=== PATIENT | male | born 1960 | race Caucasian/White ===

== ENCOUNTER 2017-02-24 14:37 | Emergency (ER) | payer MEDICAID ==
--- NOTE | 2017-02-27 16:10 | ER ---
ADMIT: 02/24/2017 RM/LOC: ER [facility] MR#: [id number] [id number] [place], [place] [address] [place] [id number] [address] Emergency Room Report SEX: M AGE: 56 : 1960 DATE: 02/24/2017 PRIMARY CARE: None. BRIEF ADDENDUM: Please see my T-sheet for complete review of systems, past medical history, and physical exam. CHIEF COMPLAINT: Today is fall. HISTORY OF PRESENT ILLNESS: This is a 56-year-old white male, who fell approximately 2 o'clock this morning from the top bunk bed at [employer]. The patient states he fell out of the top bed. Does not believe he lost consciousness. Did sustain an injury to his chin, both knees, and his back. Currently in a moderate amount of pain. He was able to walk to the department today from the [employer] on foot. Also, states he is having some pain with urination. Denies any bright blood in the urine, fevers, or chills. Denies any dizziness, lightheadedness, fever, weakness, numbness, shortness of breath, cough, nausea, or vomiting. COURSE IN THE EMERGENCY ROOM: The patient was seen and examined. He is afebrile and nontoxic. He is in no acute distress. Head, he does have a 3 mm laceration abrasion on his chin secondary to the timing and the small size of the wound, I did defer closing this today as it is not actively bleeding and was not gaping. Neck is tender in the paravertebral musculature. No midline tenderness. No limited range of motion. Eyes are equal and reactive. Extraocular muscles are intact. ENT, no obvious dental injuries. Airway is intact. No respiratory distress. Breath sounds are clear bilaterally. Heart sounds normal. Abdomen, soft and nontender. He is alert and oriented, and appropriate for exam. He does have some paravertebral musculature throughout the course of his back. Extremities, atraumatic pelvis is stable. Hips nontender. He is actively ambulating. I did get a UA on him today showed 28 red blood cells. I also gave him [place] and Flexeril, which he states did make him somewhat more comfortable. I did discuss the findings of the UA today significant for the blood. Did recommend a CT scan today to further delineate the exact causation of this finding. He is here with his , who is currently at [facility] and he at [facility]. He did not wish to proceed with CT scan today as he need to get back, so he could have a place to stay tonight. He felt comfortable to continue to monitor this using Tylenol and ibuprofen for pain control as he states he thinks this is improving and not getting worse. I did stress to him the importance of returning should he have any worsening symptoms. I offered him pain medicine. He says he is not financially able to afford any medications at this time and he thinks he can control this with [id number] medicines that is available to him at this time. ADMIT: 02/24/2017 RM/LOC: ER [facility] MR#: [id number] [address] [place] [address] Emergency Room Report SEX: M AGE: 56 : 1960 IMPRESSION: 1. Chin laceration and abrasion. 2. Microscopic hematuria. 3. Back pain. 4. Fall. DISPOSITION: The patient is to return with any worsening signs or symptoms. Use Tylenol and ibuprofen as needed for pain. Continue to stay active. Follow up with Dr. Dawn as needed. Return to the ER with any worsening signs or symptoms. Questions sought and answered to the best of my ability and to the patient's satisfaction. Discharged in stable condition. BERE Devine / Moe Kevin MD / abdirizak JOB #: [id number] CC: Moe Kevin MD, Attending Physician Davion Dawn MD, Family Physician
== END 2017-02-24 16:30 | disposition home or self-care (01) ==
LOC: ER 14:37
DX: S01.81XA Laceration without foreign body of other part of head, initial encounter (principal); M54.9 Dorsalgia, unspecified; R31.29 Other microscopic hematuria; F17.210 Nicotine dependence, cigarettes, uncomplicated; Z91.041 Radiographic dye allergy status; Z93.3 Colostomy status; Z90.49 Acquired absence of other specified parts of digestive tract; W06.XXXA Fall from bed, initial encounter; Y92.89 Other specified places as the place of occurrence of the external cause

== ENCOUNTER 2017-02-25 08:48 | Emergency (ER) | payer SELFPAY ==
--- NOTE | 2017-02-27 08:22 | ER ---
ADMIT: 02/25/2017 RM/LOC: ER [facility] MR#: [id number] [id number] [place], [place] [address] [place] [id number] [address] Emergency Room Report SEX: M AGE: 56 : 1960 DATE: 02/25/2017 TIME: 0848 hours. PRIMARY CARE: Larry Stark MD Please refer to my T-sheet for complete H and P. Briefly, the patient is a 56-year-old, who comes in with suprapubic pain for 24 hours. It has been bothering him. He had blood in his urine. He was seen here yesterday when he fell, hit his chin, he comes back in saying he is still having some pain and burning when he pees and it is just not improving. PHYSICAL EXAMINATION: VITAL SIGNS: Stable. He is afebrile. HEENT: Grossly normal. LUNGS: Clear. HEART: Regular. ABDOMEN: Soft, mildly tender suprapubic. No rebound or guarding. SKIN: No rash. EMERGENCY DEPARTMENT COURSE: UA came back normal except 154 red cells, 2+ blood. Chemistries normal. CBC normal. CT scan revealed bladder swollen, otherwise negative. I gave him Rocephin 1 g IM and Cipro 500 mg p.o., is ready for discharge. ASSESSMENT: 1. Acute abdominal pain. 2. Acute cystitis, hemorrhagic in nature. PLAN: Cipro 500 b.i.d. for 7 days. Return if worse. Fluids, [place]. I gave him a script for 15. Follow up with [facility] next week for recheck. Moe Kevin MD/ abdirizak JOB #: [id number] CC: Moe Kevin MD, Attending Physician Larry Stark MD, Family Physician
== END 2017-02-25 11:40 | disposition home or self-care (01) ==
LOC: ER 08:48
DX: N30.00 Acute cystitis without hematuria (principal); F17.210 Nicotine dependence, cigarettes, uncomplicated; Z91.09 Other allergy status, other than to drugs and biological substances; Z90.49 Acquired absence of other specified parts of digestive tract

== ENCOUNTER 2017-02-26 14:07 | Emergency (ER) | payer MEDICAID ==
--- NOTE | 2017-02-27 16:10 | ER ---
ADMIT: 02/26/2017 RM/LOC: ER [facility] MR#: [id number] [id number] [place], [place] [address] [place] [id number] [address] Emergency Room Report SEX: M AGE: 56 : 1960 DATE: 02/26/2017 CHIEF COMPLAINT: Dysuria. HISTORY OF PRESENT ILLNESS: This is a 56-year-old white male, who presents to the ER with 5 days' duration of pain with urination. I originally did see this patient after he sustained a fall at [employer], where he fell off the [employer]. Since then, he has been having some pain with urination. He was seen and evaluated yesterday by Dr. Kevin. They did do blood work and CT scan, fairly unremarkable. He was started on ciprofloxacin as well as given a script for [place] #15. He returns today stating he has run out of his pain pills. States he did fill his antibiotic and is taking that as prescribed. Denies any bright red blood in his urine. No pain or swelling of the testicles. He does have some generalized suprapubic abdominal pain. No fever. No nausea or vomiting. Does complain of some skin itching. COURSE IN THE EMERGENCY ROOM: GENERAL: The patient was seen and examined. He is afebrile and nontoxic. He is in no acute distress. He is alert. ABDOMEN: Soft. He does have some suprapubic tenderness. No guarding or rebound. No McBurney's point tenderness. RESPIRATORY: Equal bilaterally. No wheezes, rhonchi, or rales. HEART: Regular. BACK: No CVA tenderness. EXTREMITIES: No pedal edema. SKIN: Warm and dry. No obvious erythematous skin rash. He does have some small sores on his skin; however, they do not look like hives at this point. IMPRESSION: Dysuria. DISPOSITION: I did start the patient on Naprosyn 500 mg p.o. b.i.d. for 5 ADMIT: 02/26/2017 RM/LOC: [facility] MR#: [id number] [address] [address] [place] [address] Emergency Room Report SEX: M AGE: 56 : 1960 days with food. I did make them aware that I was concerned that they filled the script for the [place] yesterday for 15 and already have this medication. If taken as prescribed, this prescription would have lasted longer than what it has. Cautioned them on narcotic pain medications. I did encourage them to follow up with Dr. Stark as they were instructed to yesterday. They were not aware they needed to call to make this appointment. I did state that his phone number is on the discharge instructions and call to make this appointment. I will continue to push fluids. He can use Tylenol for breakthrough pain. Cautioned him not to use any other NSAIDs while on the Naprosyn. He should take this medication with food as it can cause some upset stomach. Questions were sought and answered to the best of my ability to the patient's satisfaction. He is discharged in stable condition. BERE Devine / Moe Kevin MD / abdirizak JOB #: [id number] CC: Moe Kevin MD, Attending Physician Larry Stark MD, Family Physician
== END 2017-02-26 15:30 | disposition home or self-care (01) ==
LOC: ER 14:07
DX: R30.0 Dysuria (principal); F17.210 Nicotine dependence, cigarettes, uncomplicated; Z90.49 Acquired absence of other specified parts of digestive tract; Z79.899 Other long term (current) drug therapy